=== PATIENT | male | born 1935 | race Caucasian/White ===

== ENCOUNTER → 2018-12-13 | Outpatient (CLI) | payer OTHER ==
[~2018-12-13] MED LIST: ASPIR 8181 MG PO; CARDURA2 MG PO; CENTRUM SILVER1 EAC4 PO; CO Q-10100 MG PO; COZAAR 50 MG TA50 M2 PO; FISH OIL 1,001000 M2 PO; LASIX 20 MG TAB20 MG PO; OCUVITE TABLET1 EAC1 PO; PROSCAR 5MG TABL5 MG PO; TENORMIN50 MG PO
== END ==
LOC: M.RAD 11:37
DX: M47.816 Spondylosis without myelopathy or radiculopathy, lumbar region (principal); M48.56XA Collapsed vertebra, not elsewhere classified, lumbar region, initial encounter for fracture; I11.0 Hypertensive heart disease with heart failure; I50.32 Chronic diastolic (congestive) heart failure; I38 Endocarditis, valve unspecified; G30.1 Alzheimer's disease with late onset; F02.80 Dementia in other diseases classified elsewhere, unspecified severity, without behavioral disturbance, psychotic disturbance, mood disturbance, and anxiety; N40.1 Benign prostatic hyperplasia with lower urinary tract symptoms; M25.78 Osteophyte, vertebrae; M12.88 Other specific arthropathies, not elsewhere classified, other specified site; M41.86 Other forms of scoliosis, lumbar region; Z88.8 Allergy status to other drugs, medicaments and biological substances; Z88.0 Allergy status to penicillin

== ENCOUNTER → 2018-12-27 | Outpatient (CLI) | payer OTHER | LOC: M.RAD 14:26 | DX: S32.010D Wedge compression fracture of first lumbar vertebra, subsequent encounter for fracture with routine healing (principal); M85.89 Other specified disorders of bone density and structure, multiple sites; I11.0 Hypertensive heart disease with heart failure; I50.32 Chronic diastolic (congestive) heart failure; I38 Endocarditis, valve unspecified; I25.10 Atherosclerotic heart disease of native coronary artery without angina pectoris; X58.XXXD Exposure to other specified factors, subsequent encounter ==